=== PATIENT | female | born 1990 | race Caucasian/White ===

== ENCOUNTER 2018-08-08 14:57 | Emergency (ER) | payer OTHER ==
[~2018-08-08] VITALS: Ht 165.1 cm; Wt 125.2 kg
[2018-08-08] MEDS ORDERED: TUSSI PRES-B L120 M1 PO (17:11)
[2018-08-08] MEDS ORDERED: OSEL75CA PO (17:11)
== END 2018-08-08 17:48 | disposition home or self-care (01) ==
LOC: ER 14:57
DX: J11.1 Influenza due to unidentified influenza virus with other respiratory manifestations (principal)